=== PATIENT | female | born 1985 | race Caucasian/White ===

== ENCOUNTER → 2018-05-22 | Outpatient (REF) | payer BC ==
[2018-05-22 14:44] LABS: CHLAMYDIA DNA AMPLIFICATION NEGATIVE (NEGATIVE); GC DNA AMPLIFICATION NEGATIVE (NEGATIVE)
[2018-05-24 14:25] LABS: HPV HYBRID CAPTURE II Negative (Negative)
== END ==
LOC: M LAB REF 13:03
PROVIDERS: ATTEND Family Medicine
DX: Z01.419 Encounter for gynecological examination (general) (routine) without abnormal findings (principal); Z11.3 Encounter for screening for infections with a predominantly sexual mode of transmission
CPT/HCPCS: 87070; 87077; 87186; 87491; 87591; 87624; G0123

== ENCOUNTER → 2020-01-01 | Outpatient (REF) | payer BC ==
[2020-01-01 16:00] LABS: HEMATOCRIT 40.3 % (36.0-47.0); HEMOGLOBIN 13.3 g/dl (12.0-15.5); MEAN CORPUSCULAR HEMOGLOBIN 29.6 pg (27.0-33.0); MEAN CORPUSCULAR VOLUME 89.6 fl (80.0-96.0); PLATELET COUNT, AUTOMATED 318 10^3/uL (150-450); WHITE BLOOD COUNT 9.7 10^3/uL (4.0-10.0)
[2020-01-01 17:20] LABS: HEPATITIS C VIRUS ABY INDEX 0.1 INDEX (<0.8); HIV 1&2 SCREEN CENTAUR NEGATIVE (NEGATIVE)
== END ==
LOC: M PLALAB 13:44
PROVIDERS: ATTEND Advanced Practice Midwife
DX: Z3A.08 8 weeks gestation of pregnancy (principal)

== ENCOUNTER → 2020-01-29 | Outpatient (REF) | payer BC | LOC: M SFHCWAGY 16:58 | PROVIDERS: ATTEND Obstetrics & Gynecology | DX: O09.521 Supervision of elderly multigravida, first trimester (principal); Z3A.00 Weeks of gestation of pregnancy not specified ==

== ENCOUNTER → 2020-02-27 | Outpatient (CLI) | payer BC | LOC: M WHC 09:11 | PROVIDERS: ATTEND Obstetrics & Gynecology | DX: Z34.92 Encounter for supervision of normal pregnancy, unspecified, second trimester (principal); Z3A.16 16 weeks gestation of pregnancy; Z53.9 Procedure and treatment not carried out, unspecified reason ==

== ENCOUNTER → 2020-02-27 | Outpatient (REF) | payer BC | LOC: M SFHCWAGY 12:57 | PROVIDERS: ATTEND Obstetrics & Gynecology | DX: O99.820 Streptococcus B carrier state complicating pregnancy (principal); Z3A.16 16 weeks gestation of pregnancy ==

== ENCOUNTER → 2020-03-18 | Outpatient (CLI) | payer BC ==
--- NOTE | 2020-03-19 08:58 | REP ---
INDICATION: ANATOMY COMPARISON: None. TECHNIQUE: Transabdominal obstetrical ultrasound with color Doppler evaluation. FINDINGS: Examination demonstrates a single live intrauterine in cephalic presentation. motion is identified by technologist. Placenta is noted anterior/posterior and grade 1 without evidence for placenta previa or abruption. Amniotic fluid volume is normal. Cervix measures 4.3 cm in length and appears closed. Placenta appears to have both anterior and posterior lobes. Gestational age by current measurements 19 weeks 6 days with UMA 08/06/2020. FHR equals 161 beats per minute. BPD: 4.8 cm 20 weeks 4 days HC: 17.1 cm 19 weeks 5 days AC: 14.3 cm 19 weeks 4 days FL: 3.2 cm 20 weeks 0 days HL: 3.0 cm 19 weeks 5 days HC/AC: 1.19 Estimated weight 316 grams (42ndpercentile). Anatomical assessment demonstrates normal structures including cranium, facial features, lungs, four-chamber heart/ventricular outflow tracts, diaphragm, stomach, cord insertion/three-vessel cord, kidneys/bladder, spine, and extremities. IMPRESSION: Single live intrauterine in cephalic presentation demonstrating appropriate estimated weight. Multiple images demonstrate both anterior and posterior lobes of the placenta. Limited evaluation of the cerebral ventricles and choroid plexus may warrant re-evaluation and follow-up. <Electronically signed by Vitaly Martinez > 03/19/20 [id number]
== END ==
LOC: M WHC 08:06
PROVIDERS: ATTEND Obstetrics & Gynecology
DX: Z34.92 Encounter for supervision of normal pregnancy, unspecified, second trimester (principal); Z3A.19 19 weeks gestation of pregnancy

== ENCOUNTER → 2020-03-25 | Outpatient (CLI) | payer BC | LOC: M WHC 13:52 | PROVIDERS: ATTEND Obstetrics & Gynecology | DX: Z34.92 Encounter for supervision of normal pregnancy, unspecified, second trimester (principal); Z3A.20 20 weeks gestation of pregnancy; Z53.9 Procedure and treatment not carried out, unspecified reason ==

== ENCOUNTER → 2020-04-17 | Outpatient (CLI) | payer BC ==
--- NOTE | 2020-04-17 13:22 | REP ---
INDICATION: F/U ANATOMY. COMPARISON: Comparison study 18 March 2020.. TECHNIQUE: Transabdominal obstetric sonography. FINDINGS: Scanning through the gravid uterus demonstrates a viable single intrauterine gestation in breech lie. motion is observed and heart rate is recorded at 155 beats per minute. A right lateral placenta is seen, grade 1, without evidence of placenta previa. Closed cervical length is measured at 4.3 cm transabdominally. No extrauterine abnormality is observed. Amniotic fluid is subjectively normal. The cerebral ventricles and choroid plexus area is visualized and felt to be unremarkable. Marginal placental cord insertion is visualized today.. Biometry chart: BPD 6.2 cm, 25 weeks 1 day Head circumference 22.2 cm, 24 weeks 2 days Abdominal circumference 19.5 cm, 24 weeks 1 day Femur length 4.1 cm, 23 weeks 2 days Humeral length 4.1 cm, 24 weeks 6 days HC AC ratio normal 1.14 Cephalic index normal 0.79 Estimated weight 641 g, 1 lb 6 oz, 29th percentile for 24 weeks 1 day IMPRESSION: Viable single intrauterine gestation at 24 weeks 2 days by today's composite sonographic criteria. UMA by today's sonography August 05, 2020. No complication identified. Expected gestational age estimate based on prior sonography is 24 weeks 1 day. UMA by prior sonography August 06, 2020. <Electronically signed by Usman Shoemaker > 04/17/20 [id number]
== END ==
LOC: M WHC 09:10
PROVIDERS: ATTEND Obstetrics & Gynecology
DX: Z34.92 Encounter for supervision of normal pregnancy, unspecified, second trimester (principal); Z3A.24 24 weeks gestation of pregnancy

== ENCOUNTER → 2020-05-21 | Outpatient (REF) | payer BC ==
[2020-05-21 15:38] LABS: HEMATOCRIT 39.2 % (36.0-47.0); HEMOGLOBIN 12.6 g/dl (12.0-15.5); MEAN CORPUSCULAR HEMOGLOBIN 28.5 pg (27.0-33.0); MEAN CORPUSCULAR HGB CONC 32.1 g/dl (32.0-36.5); MEAN CORPUSCULAR VOLUME 88.7 fl (80.0-96.0); PLATELET COUNT, AUTOMATED 254 10^3/uL (150-450); RED BLOOD COUNT 4.42 10^6/uL (4.00-5.40); WHITE BLOOD COUNT 8.7 10^3/uL (4.0-10.0)
== END ==
LOC: M PLALAB 11:33
PROVIDERS: ATTEND Obstetrics & Gynecology
DX: O09.522 Supervision of elderly multigravida, second trimester (principal)

== ENCOUNTER → 2020-06-30 | Outpatient (CLI) | payer BC | LOC: M LAB 09:07 | PROVIDERS: ATTEND Obstetrics & Gynecology | DX: R73.02 Impaired glucose tolerance (oral) (principal) ==

== ENCOUNTER → 2020-07-15 | Outpatient (CLI) | payer BC ==
--- NOTE | 2020-07-15 15:13 | REP ---
INDICATION: SIZE GREATER THAN DATES,GROWTH COMPARISON: 04/17/2020 TECHNIQUE: Transabdominal obstetrical ultrasound with color Doppler evaluation. FINDINGS: Examination demonstrates a single live intrauterine in cephalic presentation. motion is identified by technologist. Placenta is noted right lateral and grade 1 without evidence for placenta previa or abruption. Amniotic fluid volume is normal. Cervix measures 3.7 cm in length and appears closed.. Gestational age by LMP 36 weeks 6 days with UMA 08/06/2020. Gestational age by current measurements 37 weeks 0 days with UMA 08/05/2020. FHR equals 149 beats per minute. BPD: 9.2 cm at 37 weeks 2 days HC: 32.9 cm at 37 weeks 3 days AC: 34.0 cm at 37 weeks 6 days FL: 7.1 cm at 36 weeks 1 day HL: 6.2 cm at 36 weeks 1 day HC/AC: 0.97 Estimated weight 3185 grams (68thpercentile). LUCILA: 18.7 cm (7.5-24.4) IMPRESSION: Single live intrauterine in cephalic presentation demonstrating appropriate interval growth. <Electronically signed by Vitaly Martinez > 07/15/20 [id number]
== END ==
LOC: M WHC 13:59
PROVIDERS: ATTEND Obstetrics & Gynecology
DX: Z36.2 Encounter for other antenatal screening follow-up (principal); Z3A.36 36 weeks gestation of pregnancy

== ENCOUNTER 2020-07-31 03:02 | Outpatient (CLI) | payer BC ==
[~2020-07-31] VITALS: Ht 162.6 cm; Wt 78.6 kg
[2020-07-31 03:25] VITALS: BP 155/95
[2020-07-31 03:33] VITALS: BP 143/83
[2020-07-31 04:00] VITALS: BP 138/85
[2020-07-31 04:36] LABS: HEMATOCRIT 39.5 % (36.0-47.0); HEMOGLOBIN 13.2 g/dl (12.0-15.5); MEAN CORPUSCULAR HEMOGLOBIN 28.7 pg (27.0-33.0); MEAN CORPUSCULAR HGB CONC 33.4 g/dl (32.0-36.5); MEAN CORPUSCULAR VOLUME 85.9 fl (80.0-96.0); PLATELET COUNT, AUTOMATED 193 10^3/uL (150-450); WHITE BLOOD COUNT 7.7 10^3/uL (4.0-10.0)
[2020-07-31] MEDS ORDERED: ZOLO100T PO (05:00)
[2020-07-31 05:03] VITALS: BP 107/65
[2020-07-31 05:04] LABS: CREATININE,RANDOM URINE < 13.0 MG/DL; TOTAL PROTEIN,RANDOM URINE < 5.0 MG/DL (0.0-12.0)
[2020-07-31 05:06] LABS: ALT/SGPT 23 U/L (12-78); BILIRUBIN,TOTAL 0.3 MG/DL (0.2-1.0); CREATININE FOR GFR 0.76 MG/DL (0.55-1.30); GLOMERULAR FILTRATION RATE > 60.0 (>60); LDH LACTATE DEHYDROGENASE 253 U/L (84-246); URIC ACID 8.3 MG/DL (2.6-6.0)
[2020-07-31 06:12] VITALS: BP 107/58
--- NOTE | 2020-07-31 06:56 | IPN ---
PROGRESS NOTE DATE: 07/31/2020 SUBJECTIVE: Kelly is a 34-year-old 3, para 2-0-0-2, at 38 and 3/7 weeks gestation with an EDC of 08/11/2020, based on fist trimester ultrasound. She presents to labor and delivery today with report of sharp stabbing pain that started in her buttocks and radiates down the back of her leg and into her uterus. It awoken her this morning and she reports some on and off contractions. She denies vaginal bleeding and leakage of fluid. The fetus has been active. She denies headache, visual disturbances, epigastric pain, and right upper quadrant discomfort. Her care was initiated at [facility] in the first trimester. Her course complicated by advanced maternal age, smoking during , depression, anxiety, GBS positive. OBSTETRIC HISTORY: On 06/06/2009, 40 weeks gestation 7 pound 11 ounce female vaginal delivery with no complications. On 10/12/2010, 40 weeks gestation 7 pound 16 ounce male vaginal delivery with no complications. OBSTETRIC LABS:B O positive. Antibody screen negative. Syphilis negative. Gonorrhea and chlamydia negative. Hepatitis B surface antigen negative. Hepatitis C negative. HIV negative. Rubella immune. Gestational diabetic screening normal at 164. Three hour glucose tolerance test normal with fasting 70, one hour 149, two hour 122, and thee hours 94. GBS is positive. PAST MEDICAL HISTORY: 1. Anxiety. 2. Depression. 3. Childhood varicella. PAST SURGICAL HISTORY: None. FAMILY HISTORY: Diabetes, hypertension. SOCIAL HISTORY: The patient is . She is a smoker. Denies alcohol and drug use. Denies history of sexually transmitted infections. Denies history of abuse physical, sexual, and emotional. ALLERGIES: Seasonal. CURRENT MEDICATIONS: vitamin. ehepche OBJECTIVE: VITAL SIGNS: Temperature 98, pulse 63, respirations 18. She did have some elevated blood pressure upon arrival and appeared to be extremely anxious. Blood pressure 155/95, 143/83, 138/85, and 107/65. heart rate is 135 with moderate variability, positive accelerations, negative decelerations. Contractions are every 8-10 minutes. GENERAL APPEARANCE: She is smiling and talkative. PELVIC: On sterile vag exam 2 cm dilated, thick, very posterior. Station is ballotable. Moderate texture. No show with the exam. LABORATORY DATA: Due to the elevated pressures, I did do preeclamptic labs and a spot urine. The spot urine is too low to determine at this time. Her CBC with hemoglobin of 13.2, hematocrit of 39.5, and platelets 193,000. Creatinine 0.76, AST 25, ALT 23. LDH 253. Uric acid 8.3. ASSESSMENT: Intrauterine at 38 and 3/7 weeks. heart rate category one not in active labor. PLAN: Discharge the patient home. I did review discharge instructions that include signs and symptoms of active labor, movement counts, danger signs to report, and access to care. The patient is scheduled for a follow-up appointment routine visit next week. She was advised to keep that appointment. The patient and her have had all of their questions answered and do desire discharge home.
== END 2020-07-31 06:30 | disposition home or self-care (01) ==
LOC: M LDO 03:02
PROVIDERS: ATTEND Advanced Practice Midwife
DX: O26.893 Other specified pregnancy related conditions, third trimester (principal); Z3A.38 38 weeks gestation of pregnancy; M54.5 Low back pain; M79.604 Pain in right leg; M79.605 Pain in left leg; O09.523 Supervision of elderly multigravida, third trimester; O99.333 Smoking (tobacco) complicating pregnancy, third trimester; F17.210 Nicotine dependence, cigarettes, uncomplicated; O99.343 Other mental disorders complicating pregnancy, third trimester; F41.9 Anxiety disorder, unspecified; F32.9 Major depressive disorder, single episode, unspecified; O99.820 Streptococcus B carrier state complicating pregnancy
CPT/HCPCS: 36415; 59025; 82247; 82565; 82570; 83615; 84156; 84450; 84460; 84550; 85027; G0378; G0463

== ENCOUNTER 2020-08-03 09:32 | Inpatient (IN) | payer BC ==
[2020-08-03] VITALS (12 sets, daily range): BP systolic 100–158; BP diastolic 66–89
[~2020-08-03] VITALS: Ht 162.6 cm; Wt 76.7 kg
[~2020-08-03 09:32] MED LIST: ZOLO100T PO
[2020-08-03] MEDS ORDERED: LR 1,000 ML IV SCH (09:45)
[2020-08-03] MEDS ORDERED: LACTATED RINGER'S 1000 ML IV STA (09:45)
[2020-08-03] MEDS ORDERED: PENICILLIN G POTASSIUM IV 5 MU in D5W MINI-BAG PLUS 100 ML IV STA (09:45)
[2020-08-03] MEDS ORDERED: OXYTOCIN DRIP 30 UNITS in IV 1 EA IV PRN (09:45)
[2020-08-03] MEDS ORDERED: PRENTAB9 PO (09:51)
--- NOTE | 2020-08-03 10:24 | HPEPDOC ---
Obstetrical History & Physical General Date of Admission Aug 03, 2020 at 09:44 History of Present Illness Kelly is a 34yo with SIUP at 38w6d by 8wk u/s presenting with regular, pa inful ctx since earlier this morning. No LOF. Good movement. Has had some vaginal spotting. Chief Complaint: Contractions, term Information Provided By: Patient Care Care: [facility] Dating Final EDC: Aug 11, 2020 Final EDC by: 1st trimester (US) Antepartum Course Diagnos(e)s AMA, tobacco use (1-2 cig/day), depression/axiety taking sertraline 100mg qd, GBS pos urine, placenta has anterior and posterior lobe and marginal cord i nsertion, elevated 1hr glucola with normal 3hr GTT Past Medical History Past Obstetrical History : Past Obstetrical History: Multigravida (2009 40wk [id number] F, 2010 40wk [id number] M) [employer] History: No pertinent history Past Medical History Medical History seasonal allergies, depression/anxiety Surgical History: Denies/None Family History Significant Family History: No pertinent family hx Social History Marital Status: Family situation: Spouse/partner home Psychosocial History: Anxiety, Depression * Smoker: current smoker (1-2 cig/day) Alcohol: Denies Drugs: denies Imunizations Tdap status: current Influenza Status: current Allergies Coded Allergies: No Known Allergies (Verified , 07/31/20) Medications Scheduled No.137/Iron/Folic Acd ( Vitamin Tablet) 1 Each Tablet, 1 TAB PO DAILY Sertraline Hcl (Zoloft) 100 Mg Tablet, 100 MG PO DAILY Physical Examination Physical Examination GENERAL: Alert and oriented times three. ABDOMEN: Gravid and non-tender to touch. FETUS: Is vertex (VTX) by sterile vaginal examination (SVE) EXTREMITIES: No edema of BLE Laboratory Data 24H LABS Laboratory Tests 2 08/03/20 09:53: Serology Scanned Report Hepatitis B Testing Pertinent Laboratoy Data Blood Type: O+ RBC Antibody Screen: Negative HIV: Negative Hepatitis B: Negative Hepatitis C: Negative Rapid Plasma Reagin: Nonreactive Rubella: Immune Chlamydia/Gonorrhea: Negative Group B Streptococcus: Positive (by urine) Glucose Tolerance Test: 164 (3hr GTT 70/149/122/94) Anatomy Ultrasound Ultrasound Date: Mar 18, 2020 Placenta Location: Anterior (anterior AND posterior lobes) Normal Anatomy: Yes (limited eval of cerebral ventricles and choroid plexus) Placenta Previa: No Other Ultrasounds 04/17 anatomy f/u showed normal choroid plexus and cerebral ventricles, marginal placental cord insertion. 29%ile EFW. 07/15 growth scan 68%ile, placenta right lateral Steroid Therapy Steroid Therapy: No Vaginal Examination Dilation: 4 cm Effacement: 90% Station: -1 Cervical Consistency: Soft Cervical Position: Middle Presentation: Cephalic presentation Assessment Heart Rate (FHR): 150 Variability: Moderate Accelerations: Positive Decelerations: None Tocometer Contractions: Yes Frequency: regular, every 2-5 min. Duration: greater than 60 seconds Strength: palpated as strong Assessment/Plan Assessment Kelly is a 34yo with SIUP at 38w6d by 8wk u/s in active labor with SCE //-1 and regular painful ctx. Cephalic by SCE. Vitals wnl, benign exam. Cat I FHRT. PMhx/PNC significant for: AMA, tobacco use (1-2 cig/day), depression/axiety taking sertraline 100mg qd, GBS pos urine, placenta has anterior and posterior lobe and marginal cord insertion, elevated 1hr glucola with normal 3hr GTT Plan Admit and orient. Reservation Agent and consent. Diet: clear liquids Group B Streptococcus (GBS) positive: IV PCN 5/2.5 per protocol Labs and intravenous (IV) per unit protocol. Lactated Ringers (LR): Bolus 1000 mL, then at 125 mL/hr. Anticipate normal spontaneous delivery () Candidate for epidural if desired MD Sahra Dao Katrina D MD Aug 03, 2020 10:24
[2020-08-03 10:40] LABS: HEMATOCRIT 40.5 % (36.0-47.0); HEMOGLOBIN 13.6 g/dl (12.0-15.5); MEAN CORPUSCULAR HEMOGLOBIN 28.5 pg (27.0-33.0); MEAN CORPUSCULAR HGB CONC 33.6 g/dl (32.0-36.5); MEAN CORPUSCULAR VOLUME 84.7 fl (80.0-96.0); PLATELET COUNT, AUTOMATED 194 10^3/uL (150-450); RED BLOOD COUNT 4.78 10^6/uL (4.00-5.40); WHITE BLOOD COUNT 10.5 10^3/uL (4.0-10.0)
[2020-08-03] MEDS ORDERED: FENTANYL 2MCG/ML ROPIVACAINE 0.2% IN 0.9% NACL 100ML IVBAG As Ordered ONE (10:51)
[2020-08-03] MEDS ORDERED: OXYTOCIN 30 UNITS IN 0.9% NaCl 500ML IV BAG (J2590) As Ordered ONE (11:05)
[2020-08-03] MEDS ORDERED: RHOGAM 300 MCG (1500 IU) INJ (J2790) IM SCH (12:20)
[2020-08-03] MEDS ORDERED: IBUPROFEN 800 MG TAB PO PRN (12:20)
[2020-08-03] MEDS ORDERED: MEASLES,MUMPS,RUBELLA VACCINE INJ (MMR-II) (90707) SC SCH (12:20)
[2020-08-03] MEDS ORDERED: DOCUSATE SODIUM 100MG CAPSULE PO PRN (12:20)
[2020-08-03] MEDS ORDERED: DIBUCAINE 1% OINTMENT 30GM TOP PRN (12:20)
[2020-08-03] MEDS ORDERED: ACETAMINOPHEN TAB 650MG DOSE (2X325MG) PO PRN (12:20)
[2020-08-03] MEDS ORDERED: ACETAMINOPHEN 500 MG TAB PO PRN (12:20)
--- NOTE | 2020-08-03 13:55 | DNPDOC ---
[facility] Delivery Note Delivery Note DATE OF DELIVERY: 08/03/20 PREDELIVERY DIAGNOSIS: 38w6d gestation and labor. POST DELIVERY DIAGNOSIS: Delivered. PROCEDURE: Spontaneous vaginal delivery GLOBAL POSITION SYSTEM TECHNICIAN: Dr. Claribel Bocanegra MD ANESTHESIA: none ESTIMATED BLOOD LOSS: 300 mL. FINDINGS: 8 pound 0 ounce male infant, Score 7/9, nuchal cord times 1, thick meconium DELIVERY SUMMARY: Kelly is a 34yo [id number] s/p uncomplicated at 38w6d, delivering at 1117 on 08/03/20. She presented in active labor at 4cm. She received the first dose of IV penicillin for GBS positive. However, within a short amount of time she progressed to C/C/0. She had spontaneous rupture of membranes with large amount of meconium stained fluid. With just a few effective pushes, 's head delivered OA, restituted SUKUMAR. One tight nuchal cord was reduced. Right anterior shoulder delivered followed by posterior shoulder and corpus. was vigorous with spontaneous cry, placed on maternal abdomen, apgars 7/9, nose and mouth were suctioned. After approximately 1-2 minutes, cord was clamped x2 and cut by FOB. Cord blood obtained for MBT. Fundal massage was performed and traction was placed on the umbilical cord, but the placenta would not deliver, so I inspected perineum and vagina which were noted to be intact. I then reattempted delivery of the placenta a few more times with good uterine massage and traction on the cord, but ultimately at 1146 I had to perform a manual placental extraction since the placenta could not be delivered. I had to perform 3 passes, which the patient tolerated extremely well with focused breathing. The first pass retrieved a small portion of the placenta, the 2nd pass retrieved the majority of the placenta, and the third pass retrieved just a tiny portion of a cotyledon (patient's anatomy u/s noted an anterior and posterior lobe to her placenta with marginal cord insertion, so I knew at time of delivery that need for manual extraction may be indicated). At that point, IV pitocin was bolused per protocol. Uterine massage performed and fundus then firm at u-2cm with no further bleeding. All counts were correct x2. I thoroughly inspected the placenta on the side table and it looked to be complete. Mom and baby were doing well when I left the room. MD Sahra Dao Katrina D MD Aug 03, 2020 13:55
[2020-08-03] MEDS ORDERED: PENICILLIN G POTASSIUM IV 2.5 MU in IV 1 EA IV SCH (14:00)
[2020-08-03] MEDS: SERTRALINE 100 MG TAB PO SCH (20:40)
[2020-08-04] MEDS: IBUPROFEN 600MG TAB PO PRN ×2 (03:44→15:37)
[2020-08-04 06:00] VITALS: BP 150/83
[2020-08-04 09:13] VITALS: BP 128/82
[2020-08-04] MEDS: PRENATAL VITAMINS CHEWABLE TABLET PO SCH (09:16)
--- NOTE | 2020-08-04 09:18 | IPNPDOC ---
Progress Note Date of Service: Aug 04, 2020 Day#: 1 Progress Note PPD1 SUBJECT: Kelly is a 34yo [id number] s/p uncomplicated at 38w6d, delivering at 1117 on 08/03 after presenting in active labor, doing well day # 1. Delivery was only significant for manual removal of bilobed placenta and patient was GBS positive but progressed rapidly and only received the 1st dose of IV PCN. She has been ambulating, voiding spontaneously without issue and tolerating regular diet. Breast feeding without issue. Reports lochia is like a normal period. OBJECTIVE: VITAL SIGNS: Within normal limits, afebrile. Alert and oriented times three. Abdomen: Fundus firm at U-2. Soft, NTTP. Extremities: no pain with palpation of calves ASSESSMENT: Kelly is a 34yo [id number] s/p uncomplicated at 38w6d, delivering at 1117 on 08/03 after presenting in active labor, doing well day # 1. Vitals within normal limits, afebrile, hemodynamically stable with no evidence of infection. PLAN: 1. Routine care 2. Tylenol and Motrin for pain. 3. Encourage breast feeding and ambulation. 4. Regular diet 5. Likely discharge home tomorrow if meeting all milestones Claribel Bocanegra MD VS, I&O, 24H, [facility] Vital Signs/I&O Vital Signs Date Time Temp Pulse Resp B/P (MAP) Pulse Ox O2 Delivery O2 Flow Rate FiO2 08/04/20 06:00 97.7 62 18 150/83 (105) 99 Room Air I&O- Last 24 Hours up to 6 AM 08/04/20 06:00 Intake Total 1476 ml Output Total 600 ml Balance 876 ml Laboratory Data 24H LABS Laboratory Tests 2 08/03/20 09:53: Serology Scanned Report Hepatitis B Testing 08/03/20 10:11: 08/03/20 10:12: Nucleated Red Blood Cells % (auto) 0.0 CBC/BMP Laboratory Tests 08/03/20 10:12 Claribel Bocanegra MD Aug 04, 2020 09:18
[2020-08-04 18:07] VITALS: BP 127/71
[2020-08-04] MEDS: SERTRALINE 100 MG TAB PO SCH (21:11)
[2020-08-05 06:00] VITALS: BP 103/56
[2020-08-05] MEDS: PRENATAL VITAMINS CHEWABLE TABLET PO SCH (08:37)
[2020-08-05] MEDS ORDERED: IBUP80TA PO (09:05)
[2020-08-05] MEDS ORDERED: ACET-683 PO (09:05)
== END 2020-08-05 14:55 | disposition home or self-care (01) | DRG 541 ==
LOC: M LDO 09:32 → M LDI 09:44 → M OBS 14:30
PROVIDERS: ADMIT Obstetrics & Gynecology; ATTEND Obstetrics & Gynecology
PROC: 10E0XZZ Delivery of Products of Conception, External Approach (ICD-10-PCS; principal; 2020-08-03)
PROC: 10D17Z9 Manual Extraction of Products of Conception, Retained, Via Natural or Artificial Opening (ICD-10-PCS; 2020-08-03)
DX: O99.334 Smoking (tobacco) complicating childbirth (principal); F17.210 Nicotine dependence, cigarettes, uncomplicated; O99.344 Other mental disorders complicating childbirth; F32.9 Major depressive disorder, single episode, unspecified; F41.9 Anxiety disorder, unspecified; O99.824 Streptococcus B carrier state complicating childbirth; O77.0 Labor and delivery complicated by meconium in amniotic fluid; O69.1XX0 Labor and delivery complicated by cord around neck, with compression, not applicable or unspecified; O73.0 Retained placenta without hemorrhage; O43.193 Other malformation of placenta, third trimester; Z37.0 Single live birth; Z3A.38 38 weeks gestation of pregnancy

== ENCOUNTER → 2020-11-10 | Outpatient (REF) | payer BC ==
[~2020-11-10] MED LIST changes: +ACET-683 PO; +IBUP80TA PO; +PRENTAB9 PO
== END ==
LOC: M WUC 19:43
PROVIDERS: ATTEND Physician Assistant
DX: R30.0 Dysuria (principal)

== ENCOUNTER → 2020-12-03 | Outpatient (CLI) | payer BC ==
--- NOTE | 2020-12-03 12:38 | REP ---
INDICATION: IRREGULAR BLEEDING COMPARISON: None. TECHNIQUE: Transabdominal pelvic ultrasound followed by transvaginal examination for better evaluation of the endometrium and adnexa with color evaluation. FINDINGS: Bladder is unremarkable and measures 3.3 x 2.7 x 6.6 cm. Normal anteverted uterus measures 7.4 x 3.8 x 4.5 cm. The endometrial complex measures 3 mm thickness. Incidental small 2 mm calcification in the endometrium. Bilateral ovaries are normal in appearance. Right ovary measures 3.3 x 1.2 x 1.9 cm; left ovary measures 4.0 x 1.6 x 1.8 cm. No pelvic fluid or adnexal mass lesion. IMPRESSION: Normal pelvic ultrasound. <Electronically signed by Vitaly Martinez > 12/03/20 [id number]
== END ==
LOC: M WHC 11:10
PROVIDERS: ATTEND Advanced Practice Midwife
DX: N92.6 Irregular menstruation, unspecified (principal)

== ENCOUNTER → 2021-09-03 | Outpatient (REF) | payer BC | LOC: M LAB REF 16:59 | PROVIDERS: ATTEND Family Medicine | DX: N76.1 Subacute and chronic vaginitis (principal) ==

== ENCOUNTER → 2021-11-16 | Outpatient (CLI) | payer BC ==
[2021-11-16 14:10] LABS: FREE T4 0.87 NG/DL (0.76-1.46); THYROID STIMULATING HORMONE 1.45 uIU/ML (0.358-3.740)
[2021-11-16 14:44] LABS: PROLACTIN 13.6 NG/ML
== END ==
LOC: M ADAMS 10:54
PROVIDERS: ATTEND Obstetrics & Gynecology Obstetrics
DX: N93.9 Abnormal uterine and vaginal bleeding, unspecified (principal)

== ENCOUNTER → 2021-12-03 | Outpatient (REF) | payer BC | LOC: M LAB REF 17:18 | PROVIDERS: ATTEND Nurse Practitioner Family | DX: N76.1 Subacute and chronic vaginitis (principal) ==

== ENCOUNTER → 2023-04-19 | Outpatient (REF) | payer BC | LOC: M LAB REF 10:09 | PROVIDERS: ATTEND Registered Nurse | DX: Z12.4 Encounter for screening for malignant neoplasm of cervix (principal) | CPT/HCPCS: 87624; G0123 ==

== ENCOUNTER → 2023-11-15 | Outpatient (CLI) | payer BC | LOC: M WUC 10:04 | PROVIDERS: ATTEND Nurse Practitioner Family | DX: M79.672 Pain in left foot (principal) ==

== ENCOUNTER → 2024-07-02 | Outpatient (REF) | payer BC ==
[2024-07-02 14:15] LABS: BASO % 0.7 % (0.0-1.0); EOS # 0.4 10^3/uL (0.0-0.5); EOS % 6.8 % (0.0-3.0); HEMATOCRIT 40.2 % (36.0-47.0); LYMPH # 2.5 10^3/uL (1.5-5.0); LYMPH % 41.8 % (24.0-44.0); MEAN CORPUSCULAR HEMOGLOBIN 29.5 pg (27.0-33.0); MEAN CORPUSCULAR HGB CONC 32.3 g/dl (32.0-36.5); MEAN CORPUSCULAR VOLUME 91.2 fl (80.0-96.0); MONO # 0.5 10^3/uL (0.0-0.8); MONO % 8.8 % (2.0-8.0); NEUTROPHILS # 2.5 10^3/uL (1.5-8.5); NEUTROPHILS % 41.7 % (36.0-66.0); PLATELET COUNT, AUTOMATED 301 10^3/uL (150-450); RED BLOOD COUNT 4.41 10^6/uL (4.00-5.40); WHITE BLOOD COUNT 5.9 10^3/uL (4.0-10.0)
[2024-07-02 14:41] LABS: ALBUMIN 3.9 G/DL (3.2-5.2); ALKALINE PHOSPHATASE 85 U/L (35-104); ALT/SGPT 17 U/L (7.0-40); AST/SGOT 13 U/L (<34); BILIRUBIN,TOTAL 0.3 MG/DL (0.3-1.2); BLOOD UREA NITROGEN 14 MG/DL (9-23); CALCIUM LEVEL 9.2 MG/DL (8.5-10.1); CARBON DIOXIDE LEVEL 29 MMOL/L (20-31); CHLORIDE LEVEL 104 MMOL/L (98-107); CHOLESTEROL LEVEL 192 MG/DL (<200); CHOLESTEROL RISK RATIO 2.36 (<5); CREATININE FOR GFR 0.79 MG/DL (0.55-1.30); GLOMERULAR FILTRATION RATE > 90.0 (>58); GLUCOSE, FASTING 88 MG/DL (60-100); HDL CHOLESTEROL 81.1 MG/DL (>40); LDL CHOLESTEROL 91.3 MG/DL (<100); NON-HDL-C 110.9 MG/DL; POTASSIUM SERUM 4.1 MMOL/L (3.5-5.1); SODIUM LEVEL 141 MMOL/L (136-145); TOTAL PROTEIN 6.9 G/DL (5.7-8.2); TRIGLYCERIDES LEVEL 98 MG/DL (<150)
== END ==
LOC: M LABDRWAD 12:45
PROVIDERS: ATTEND Registered Nurse
DX: Z00.00 Encounter for general adult medical examination without abnormal findings (principal)